=== PATIENT | female | born 1990 | race American Indian/Alaskan Native ===

== ENCOUNTER 2022-02-26 21:30 | Emergency (ER) | payer SELFPAY ==
[2022-02-26 22:35] VITALS: BP 109/74
--- NOTE | 2022-02-27 01:20 | Emergency Department Report ---
ED General Adult HPI - General Chief complaint: Dental/Oral Stated complaint: TOOTHACHE Source: patient Mode of arrival: Ambulatory Limitations: No Limitations - History of Present Illness Initial comments: Patient is a 31-year-old female with history of chronic dental abscesses who presents to the ED with complaint of acute exacerbation of his chronic dental pains characterized by right mandibular and maxillary premolar and molar tooth aches with swollen gums for the last 1 week, worse in the last 3 days. Patient states that the pain is constant and persistent and that she is unable to sleep or eat because of worsening pain. Patient denies fever, chills, sore throat, dysphagia, dysphonia, nasal and sinus congestion, traumatic injury, cough, sore throat, headache, chest pain and shortness of breath, nausea and vomiting. MD Complaint: Right mandibular and maxillary premolar and molar toothache with swollen gu -: Sudden, week(s) (1) Location: mouth Radiation: non-radiation Severity scale (0 -10): 10 Quality: aching, sharp Consistency: constant Improves with: none Worsens with: eating Associated Symptoms: denies other symptoms, headaches. denies: confusion, chest pain, cough, diaphoresis, fever/chills, loss of appetite, malaise, nausea/vomiting, rash, seizure, shortness of breath, syncope, weakness Treatments Prior to Arrival: none - Related Data Previous Rx's Medication Instructions Recorded Last Taken Type Acetaminophen/Codeine [Tylenol 1 tab PO Q6H PRN #12 tab 02/27/22 Unknown Rx /Codeine # 3 tab] Clindamycin [Clindamycin CAP] 300 mg PO Q8H #30 cap 02/27/22 Unknown Rx Ketorolac [Toradol] 10 mg PO Q8H PRN #20 tab 02/27/22 Unknown Rx Allergies Allergy/AdvReac Type Severity Reaction Status Date / Time No Known Allergies Allergy Unverified 02/26/22 22:35 ED Review of Systems ROS: Stated complaint: TOOTHACHE Other details as noted in HPI Constitutional: denies: chills, fever Eyes: denies: eye pain, eye discharge, vision change ENT: dental pain (Right maxillary and mandibular premolar and molar toothache with swollen gums). denies: ear pain, throat pain Respiratory: denies: cough, shortness of breath, wheezing Cardiovascular: denies: chest pain, palpitations Endocrine: no symptoms reported Gastrointestinal: denies: abdominal pain, nausea, diarrhea Genitourinary: denies: urgency, dysuria, discharge Musculoskeletal: denies: back pain, joint swelling, arthralgia Skin: denies: rash, lesions Neurological: denies: headache, weakness, paresthesias Psychiatric: denies: anxiety, depression Hematological/Lymphatic: denies: easy bleeding, easy bruising ED Past Medical Hx - Medications Home Medications: Home Medications Medication Instructions Recorded Confirmed Last Taken Type Acetaminophen/Codeine [Tylenol 1 tab PO Q6H PRN #12 tab 02/27/22 Unknown Rx /Codeine # 3 tab] Clindamycin [Clindamycin CAP] 300 mg PO Q8H #30 cap 02/27/22 Unknown Rx Ketorolac [Toradol] 10 mg PO Q8H PRN #20 tab 02/27/22 Unknown Rx ED Physical Exam - General Limitations: No Limitations General appearance: alert, in no apparent distress - Head Head exam: Present: atraumatic, normocephalic, normal inspection - Eye Eye exam: Present: normal appearance, PERRL, EOMI Pupils: Present: normal accommodation - ENT ENT exam: Present: normal exam, mucous membranes moist, TM's normal bilaterally, normal external ear exam, other (Swollen, tender right maxillary and mandibular gingiva; tender maxillary and mandibular premolar and molar teeth with multiple dental caries) - Neck Neck exam: Present: normal inspection, full ROM. Absent: tenderness - Respiratory Respiratory exam: Present: normal lung sounds bilaterally. Absent: respiratory distress, wheezes, rales, stridor, chest wall tenderness, accessory muscle use, decreased breath sounds, prolonged expiratory - Cardiovascular Cardiovascular Exam: Present: regular rate, normal rhythm, normal heart sounds. Absent: systolic murmur, diastolic murmur, rubs, gallop - GI/Abdominal GI/Abdominal exam: Present: soft, normal bowel sounds. Absent: distended, tenderness, guarding, rebound, hyperactive bowel sounds, hypoactive bowel sounds, organomegaly - Extremities Exam Extremities exam: Present: normal inspection, full ROM, normal capillary refill. Absent: tenderness - Back Exam Back exam: Present: normal inspection, full ROM. Absent: tenderness, CVA tenderness (R), CVA tenderness (L), muscle spasm, paraspinal tenderness, vertebral tenderness - Neurological Exam Neurological exam: Present: alert, oriented X3, CN II-XII intact, normal gait, reflexes normal - Psychiatric Psychiatric exam: Present: normal affect, normal mood - Skin Skin exam: Present: warm, dry, intact, normal color. Absent: rash ED Course Vital Signs 02/26/22 22:34 Temperature 98.2 F Pulse Rate 65 Respiratory 16 Rate Blood Pressure 109/74 [Right] O2 Sat by Pulse 99 Oximetry ED Medical Decision Making - Medical Decision Making This is a 31-year-old female with history of chronic dental abscesses who presents to the ED with complaint of acute exacerbation of his chronic dental pains characterized by right mandibular and maxillary premolar and molar tooth aches with swollen gums for the last 1 week, worse in the last 3 days. Patient states that the pain is constant and persistent and that she is unable to sleep or eat because of worsening pain. In the ED, patient is alert and oriented x3 and is not in any distress. Patient is hemodynamically stable. Patient was treated for pain in the ED. Patient was discharged home on pain medication and prophylactic antibiotics and advised to follow-up with her dentist in 7 to 10 days for reevaluation or return to the ED immediately if symptoms get worse. - Differential Diagnosis Gingivitis; dental pain; dental caries; dental abscess Critical care attestation.: If time is entered above; I have spent that time in minutes in the direct care of this critically ill patient, excluding procedure time. ED Disposition Clinical Impression: Acute gingivitis, Dental abscess, Dental caries Disposition: 01 HOME / SELF CARE / HOMELESS Is pt being admited?: No Does the pt Need Aspirin: No Condition: Stable Instructions: Dental Abscess, [id number], Trench Mouth, Dental Extraction, Care After, [id number] Additional Instructions: Take medication with food, drink plenty of fluids and follow-up with your dentist in 7 to 10 days for reevaluation. Return to the ED immediately if symptoms get worse. Prescriptions: Clindamycin [Clindamycin CAP] 300 mg PO Q8H #30 cap Ketorolac [Toradol] 10 mg PO Q8H PRN #20 tab PRN Reason: Pain Acetaminophen/Codeine [Tylenol /Codeine # 3 tab] 1 tab PO Q6H PRN #12 tab PRN Reason: Pain , Severe (7-10) Referrals: [facility] [Provider Group] - 7-10 days Forms: Work/School Release Form(ED) Time of Disposition: 01:20 Print Language: MALTESE
[2022-02-27] MEDS ORDERED: HYDROcodone/ACETAMINOPHEN 5-325 MG TAB PO ONE (01:22)
[2022-02-27] MEDS ORDERED: CLINDAMYCIN 300 MG CAP PO ONE (01:22)
[2022-02-27] MEDS ORDERED: ONDANSETRON 4 MG ODT TAB PO ONE (01:22)
== END 2022-02-27 01:56 | disposition home or self-care (01) ==
LOC: ED 21:30
DX: K04.7 Periapical abscess without sinus (principal); K02.9 Dental caries, unspecified; K05.00 Acute gingivitis, plaque induced; Z79.899 Other long term (current) drug therapy
CPT/HCPCS: 99282; J3490; Q0162

== ENCOUNTER 2022-03-03 13:43 | Emergency (ER) | payer SELFPAY ==
[2022-03-03 20:52] LABS: Bilirubin,Urine NEG (Negative); Blood,Urine LG (Negative); Color,Urine Yellow (Yellow); Mucus,Urine FEW /HPF; Urobilinogen,Urine < 2.0 mg/dL (<2.0)
[2022-03-03] MEDS ORDERED: ONDANSETRON 4 MG ODT TAB PO ONE (21:20)
[2022-03-03] MEDS ORDERED: levoFLOXacin 750 MG TAB PO ONE (21:20)
[2022-03-03] MEDS ORDERED: HYDROcodone/ACETAMINOPHEN 10-325MG TAB PO ONE (21:20)
--- NOTE | 2022-03-03 21:28 | Emergency Department Report ---
ED Female HPI - General Chief complaint: Pain General Stated complaint: POSS UTI Time Seen by Provider: 03/03/22 21:15 Source: patient Mode of arrival: Ambulatory Limitations: No Limitations - History of Present Illness Initial comments: 31-year-old female female presents emerged from complaining of a 2-day history of increased urinary urgency decreased urinary production and burning on urination with pain and radiates through to her flank and fever sensation. Occasional nausea or vomiting or diarrhea. MD Complaint: dysuria, pelvic pain -: Gradual, days(s) (2) Location: suprapubic Radiation: suprapubic Severity: mild Quality: burning Consistency: constant Improves with: none Worsens with: urination Are you Now?: No Associated Symptoms: dysuria. denies: vaginal discharge, vaginal bleeding, nausea/vomiting, loss of appetite, hematuria, shortness of breath, syncope - Related Data Previous Rx's Medication Instructions Recorded Last Taken Type Acetaminophen/Codeine [Tylenol 1 tab PO Q6H PRN #12 tab 02/27/22 Unknown Rx /Codeine # 3 tab] Clindamycin [Clindamycin CAP] 300 mg PO Q8H #30 cap 02/27/22 Unknown Rx Ketorolac [Toradol] 10 mg PO Q8H PRN #20 tab 02/27/22 Unknown Rx Acetaminophen/Codeine [Tylenol 1 tab PO Q6H #10 tab 03/03/22 Unknown Rx /Codeine # 3 tab] Phenazopyridine [Pyridium] 200 mg PO TID #9 tab 03/03/22 Unknown Rx Sulfamethoxazole/Trimethoprim 1 each PO BID #28 03/03/22 Unknown Rx [Bactrim DS TAB] Allergies Allergy/AdvReac Type Severity Reaction Status Date / Time No Known Allergies Allergy Verified 03/03/22 14:17 ED Review of Systems ROS: Stated complaint: POSS UTI Other details as noted in HPI Comment: All other systems reviewed and negative ED Past Medical Hx - Past Medical History Previous Medical History?: No - Surgical History Additional Surgical History: 2 C Sections - Social History Smoking Status: Light Tobacco Smoker Substance Use Type: None - Medications Home Medications: Home Medications Medication Instructions Recorded Confirmed Last Taken Type Acetaminophen/Codeine [Tylenol 1 tab PO Q6H PRN #12 tab 02/27/22 Unknown Rx /Codeine # 3 tab] Clindamycin [Clindamycin CAP] 300 mg PO Q8H #30 cap 02/27/22 Unknown Rx Ketorolac [Toradol] 10 mg PO Q8H PRN #20 tab 02/27/22 Unknown Rx Acetaminophen/Codeine [Tylenol 1 tab PO Q6H #10 tab 03/03/22 Unknown Rx /Codeine # 3 tab] Phenazopyridine [Pyridium] 200 mg PO TID #9 tab 03/03/22 Unknown Rx Sulfamethoxazole/Trimethoprim 1 each PO BID #28 03/03/22 Unknown Rx [Bactrim DS TAB] ED Physical Exam - General Limitations: No Limitations General appearance: alert, in no apparent distress - Head Head exam: Present: atraumatic, normocephalic - Eye Eye exam: Present: normal appearance, PERRL, EOMI Pupils: Present: normal accommodation - ENT ENT exam: Present: mucous membranes moist - Neck Neck exam: Present: normal inspection - Respiratory Respiratory exam: Present: normal lung sounds bilaterally. Absent: respiratory distress, wheezes, chest wall tenderness, decreased breath sounds - Cardiovascular Cardiovascular Exam: Present: regular rate, normal rhythm. Absent: systolic murmur, diastolic murmur, rubs, gallop - GI/Abdominal GI/Abdominal exam: Present: soft, normal bowel sounds - Extremities Exam Extremities exam: Present: normal inspection - Back Exam Back exam: Present: normal inspection - Neurological Exam Neurological exam: Present: alert, oriented X3 - Psychiatric Psychiatric exam: Present: normal affect, normal mood - Skin Skin exam: Present: warm, dry, intact, normal color. Absent: rash ED Course Vital Signs 03/03/22 14:10 Temperature 99.9 F H Respiratory 17 Rate O2 Sat by Pulse 100 Oximetry Critical care attestation.: If time is entered above; I have spent that time in minutes in the direct care of this critically ill patient, excluding procedure time. ED Disposition Clinical Impression: UTI (urinary tract infection) Disposition: 01 HOME / SELF CARE / HOMELESS Is pt being admited?: No Does the pt Need Aspirin: No Condition: Stable Instructions: Urinalysis Test, Urinary Tract Infection, Adult Prescriptions: Sulfamethoxazole/Trimethoprim [Bactrim DS TAB] 1 each PO BID #28 Phenazopyridine [Pyridium] 200 mg PO TID #9 tab Acetaminophen/Codeine [Tylenol /Codeine # 3 tab] 1 tab PO Q6H #10 tab
[2022-03-03 22:07] VITALS: BP 133/70
== END 2022-03-03 22:09 | disposition home or self-care (01) ==
LOC: ED 13:43
DX: N39.0 Urinary tract infection, site not specified (principal); Z79.899 Other long term (current) drug therapy
CPT/HCPCS: 81001; 81015; 87086; 99283; J3490; Q0162